=== PATIENT | female | born 1995 | race Hispanic/Latino ===

== ENCOUNTER 2021-09-28 14:56 | Emergency (ER) | payer OTHER, BC ==
[~2021-09-28] VITALS: Ht 160 cm; Wt 73.6 kg
[2021-09-28] MEDS ORDERED: KETOROLAC TROMETHAMINE 60 MG/2 ML VIAL ONE (16:28)
[2021-09-28] MEDS ORDERED: KETOROLAC TROMETHAMINE 60 MG/2 ML VIAL IM ONE (17:00)
[2021-09-28] MEDS ORDERED: NAPROSYN500 MG PO (17:27)
[2021-09-28] MEDS ORDERED: CYCLOBENZAPRINE10 MG PO (17:28)
== END 2021-09-28 17:39 | disposition home or self-care (01) ==
LOC: FSED 15:48
DX: S13.4XXA Sprain of ligaments of cervical spine, initial encounter (principal); R51.9 Headache, unspecified; M25.531 Pain in right wrist; T24.412A Corrosion of unspecified degree of left thigh, initial encounter; T24.411A Corrosion of unspecified degree of right thigh, initial encounter; V53.5XXA Driver of pick-up truck or van injured in collision with car, pick-up truck or van in traffic accident, initial encounter; Y92.488 Other paved roadways as the place of occurrence of the external cause
CPT/HCPCS: 73110; 73130; 81025; 96372; 99283; J1885